=== PATIENT | male | born 1940 | race Caucasian/White ===

== ENCOUNTER 2019-11-11 15:35 | Inpatient (IN) ==
[2019-11-11 18:16] LABS: Basophils % 0.5 % (0.0-0.8); Hematocrit 34.7 VOL% (42.0-52.0); Hemoglobin 10.1 GM/DL (14.0-18.0); Immature Granulocytes % 5.8 %; Immature Granulocytes Absolute 0.47 #; Lymphocytes % 12.8 % (21.2-54.2); Mean Corpuscular HGB Conc 29.1 GM/DL (32-36); Mean Corpuscular Volume 79.8 FL (87-102); Monocytes % 59.3 % (1.7-12.7); Neutrophils % 21.6 % (38.7-73.9); Red Blood Count 4.35 MC/CUMM (3.8-5.5); Red Cell Distribution Width 22.5 % (9.3-17.3); White Blood Count 8.1 T/CUMM (4-12)
[2019-11-11 18:22] LABS: Platelet Count 30 T/CUMM (130-400)
[2019-11-11 18:24] LABS: Albumin 2.8 G/DL (3.4-5.0); Bilirubin,Total 0.8 MG/DL (0.2-1.0); Calcium 7.8 MG/DL (8.5-10.1); Osmolality,Calculated 281.4 MOS/KG (273-304); Total Protein 6.8 G/DL (6.4-8.3)
[2019-11-11 19:16] LABS: Sedimentation Rate-Westergren 34 MM/HR (0-20)
[2019-11-11 19:20] LABS: Band Neutrophils 4 % (0-10); Lymphocytes 15 % (20-55); Segmented Neutrophils 19 % (50-85)
[2019-11-11 19:50] LABS: Platelet Estimate Decreased
[2019-11-11 19:51] LABS: Hypochromasia Slight; Microcytosis Slight; Polychromasia Slight
[2019-11-11 19:52] LABS: Total Cells Counted 100
[2019-11-11 21:20] LABS: Apearance,Urine CLOUDY (Clear); Bacteria,Urine Many /HPF (Few); Bilirubin,Urine Negative (Negative); Blood, Urine Small mg/dL (Negative); Glucose,Urine (UA) Negative (Negative); Hyaline Casts,Urine 4 /LPF (0-3); Ketones,Urine Negative (Negative); Mucus,Urine Few /LPF (Occasional); Nitrite,Urine Negative (Negative); Protein,Urine 100 MG/DL; RBC,Urine 14 /HPF (0-4); Squamous Epithelial Cell,Urine Occasional /HPF (0-10); Urine Color Amber (Yellow); Urine Specific Gravity 1.018 (1.001-1.035); Urine Urobilinogen < 2.0 EU/DL (0.2-1.0); WBC,Urine 339 /HPF (0-6)
[2019-11-12] MEDS ORDERED: GLUCAGON 1 MG VIAL IM PRN (02:56)
[2019-11-12] MEDS ORDERED: DEXTROSE 50% 25 GM/50 ML SYRINGE IV PRN (02:56)
[2019-11-12] MEDS ORDERED: ALBUTEROL/IPRATROPIUM 3 ML NEB RESP TX PRN (02:56)
[2019-11-12] MEDS ORDERED: cefTRIAXone 1,000 MG in SYRINGE 1 EACH IV SCH (03:00)
[2019-11-12] MEDS: DOXYCYCLINE HYCLATE INJ 100 MG in SODIUM CHLORIDE 0.9% 100 ML IV SCH ×2 (04:45→15:33)
[2019-11-12] MEDS: ATORVASTATIN 80 MG TABLET PO SCH ×2 (06:26→21:45)
[2019-11-12 06:30] LABS: Basophils # 0.1 10*3/uL (0.0-0.2); Basophils % 0.5 % (0.0-0.8); Hematocrit 33.3 VOL% (42.0-52.0); Hemoglobin 9.8 GM/DL (14.0-18.0); Immature Granulocytes % 6.9 %; Immature Granulocytes Absolute 0.76 #; Lymphocytes # 0.5 10*3/uL (1.4-4.0); Lymphocytes % 4.3 % (21.2-54.2); Mean Corpuscular HGB Conc 29.4 GM/DL (32-36); Mean Corpuscular Volume 78.9 FL (87-102); Monocytes % 44.2 % (1.7-12.7); Neutrophils % 44.1 % (38.7-73.9); Red Blood Count 4.22 MC/CUMM (3.8-5.5); Red Cell Distribution Width 22.8 % (9.3-17.3); White Blood Count 11.1 T/CUMM (4-12)
[2019-11-12] MEDS ORDERED: ELTROMBOPAG 50 MG PO SCH (06:30)
[2019-11-12 06:47] LABS: Platelet Count 26 T/CUMM (130-400)
[2019-11-12 07:03] LABS: Band Neutrophils 7 % (0-10); Hypochromasia 1+; Lymphocytes 5 % (20-55); Myelocytes 1 %; Segmented Neutrophils 46 % (50-85); Total Cells Counted 100
[2019-11-12 07:04] LABS: Microcytosis 1+; Polychromasia Slight
[2019-11-12 07:05] LABS: Platelet Estimate Decreased; Target Cells Slight
[2019-11-12 07:13] LABS: Albumin 2.6 G/DL (3.4-5.0); Bilirubin,Total 0.9 MG/DL (0.2-1.0); Calcium 8.5 MG/DL (8.5-10.1); Ferritin 1859.3 ng/ml (26-388); Osmolality,Calculated 284.3 MOS/KG (273-304); Total Protein 7.2 G/DL (6.4-8.3)
[2019-11-12] MEDS ORDERED: [UNRECOGNIZED DRUG - OTHER] PO SCH (09:00)
[2019-11-12] MEDS: ASPIRIN EC 81 MG TABLET PO SCH (09:09)
[2019-11-12] MEDS: DUTASTERIDE 0.5 MG CAPSULE PO SCH (09:09)
[2019-11-12] MEDS: MONTELUKAST 10 MG TABLET PO SCH (09:09)
[2019-11-12] MEDS: METOPROLOL TARTRATE 25 MG TABLET PO SCH ×2 (09:09→21:45)
[2019-11-12] MEDS: PANTOPRAZOLE 40 MG TABLET PO SCH (10:02)
[2019-11-12] MEDS: SODIUM CHLORIDE 0.9% 1,000 ML IV SCH ×2 (15:33→15:34)
[2019-11-12] MEDS ORDERED: LEVOFLOXACIN 500 MG TABLET PO SCH (17:00)
[2019-11-12] MEDS: LATANOPROST 0.005% OPH SOLN 2.5 ML BOTTLE BOTH EYES SCH (21:45)
[2019-11-12] MEDS: MIRTAZAPINE 15 MG TABLET PO SCH (21:45)
[2019-11-13 06:19] LABS: Calcium 8.6 MG/DL (8.5-10.1); Osmolality,Calculated 285.3 MOS/KG (273-304)
[2019-11-13] MEDS: DUTASTERIDE 0.5 MG CAPSULE PO SCH (08:53)
[2019-11-13] MEDS: MONTELUKAST 10 MG TABLET PO SCH (08:54)
[2019-11-13] MEDS: PANTOPRAZOLE 40 MG TABLET PO SCH (08:54)
[2019-11-13] MEDS: METOPROLOL TARTRATE 25 MG TABLET PO SCH ×2 (08:54→20:10)
[2019-11-13] MEDS: ASPIRIN EC 81 MG TABLET PO SCH (08:54)
[2019-11-13] MEDS ORDERED: ACETAMINOPHEN 325 MG TABLET PO PRN (13:53)
[2019-11-13] MEDS: MIRTAZAPINE 15 MG TABLET PO SCH (20:09)
[2019-11-13] MEDS: ATORVASTATIN 80 MG TABLET PO SCH (20:09)
[2019-11-13] MEDS: LATANOPROST 0.005% OPH SOLN 2.5 ML BOTTLE BOTH EYES SCH (21:52)
[2019-11-14] MEDS: MONTELUKAST 10 MG TABLET PO SCH (09:23)
[2019-11-14] MEDS: ASPIRIN EC 81 MG TABLET PO SCH (09:23)
[2019-11-14] MEDS: METOPROLOL TARTRATE 25 MG TABLET PO SCH ×2 (09:23→20:00)
[2019-11-14] MEDS: PANTOPRAZOLE 40 MG TABLET PO SCH (09:23)
[2019-11-14] MEDS: DUTASTERIDE 0.5 MG CAPSULE PO SCH (09:23)
[2019-11-14] MEDS: CEFUROXIME 250 MG TABLET PO SCH ×2 (11:50→20:00)
[2019-11-14] MEDS: ATORVASTATIN 80 MG TABLET PO SCH (20:00)
[2019-11-14] MEDS: LATANOPROST 0.005% OPH SOLN 2.5 ML BOTTLE BOTH EYES SCH (20:00)
[2019-11-14] MEDS: MIRTAZAPINE 15 MG TABLET PO SCH (20:00)
[2019-11-15] MEDS: ASPIRIN EC 81 MG TABLET PO SCH (09:21)
[2019-11-15] MEDS: DUTASTERIDE 0.5 MG CAPSULE PO SCH (09:21)
[2019-11-15] MEDS: CEFUROXIME 250 MG TABLET PO SCH (09:22)
[2019-11-15] MEDS: MONTELUKAST 10 MG TABLET PO SCH (09:22)
[2019-11-15] MEDS: PANTOPRAZOLE 40 MG TABLET PO SCH (09:22)
[2019-11-15] MEDS: METOPROLOL TARTRATE 25 MG TABLET PO SCH (09:22)
[2019-11-15 10:47] VITALS: BP 159/103
== END 2019-11-15 11:30 | disposition home or self-care (01) | DRG 177 ==
LOC: N.ED 15:35 → N.EDINP 21:39 → N.2E 11-12 02:32
PROVIDERS: ADMIT Internal Medicine Geriatric Medicine; ATTEND Internal Medicine Geriatric Medicine